=== PATIENT | female | born 2000 | race African-American/Black ===

== ENCOUNTER 2023-04-01 16:37 | Emergency (ER) | payer MEDICAID, SELFPAY ==
[2023-04-01] MEDS ORDERED: Ondansetron PF 4 MG/2 ML Vial ONE (16:57)
[2023-04-01 17:12] LABS: Hematocrit 49.3 % (36.0-47.0); Hemoglobin 15.2 g/dL (12.0-16.0); Mean Corpuscular HGB CONC 30.8 g/dL (32.0-36.0); Mean Corpuscular Hemoglobin 27.1 pg (25.0-35.0); White Blood Cell (WBC) Count 12.8 10x3/uL (4.8-10.8)
[2023-04-01 17:13] LABS: #Monocytes 0.9 thou/uL (0.11-0.59); #Neutrophils 9.8 thou/uL (1.40-6.50); %Basophils 0.7 % (0.0-1.0); %Eosinophils 0.4 % (0.0-10.0); %Lymphocytes 15.3 % (28.0-48.0); %Monocytes 7.3 % (0.0-4.0); %Neutrophils 76.3 % (31.0-61.0); Manual Diff?? NO; Mean Platelet Volume 5.7 fL (7.4-10.4); Platelet Count 329 10x3/uL (130-400); RBC Distribution Width 11.7 % (11.5-14.5)
[2023-04-01 17:14] LABS: #Basophils 0.1 thou/uL (0.0-0.2); MDiff Complete? YES
[2023-04-01 17:20] LABS: Anion Gap 18 mmol/L (10-20); BUN (Urea Nitrogen) 18 mg/dL (7.0-18.7); Calc. Creatinine Clearance 0 mL/min (70-130); Carbon Dioxide 20 mmol/L (22-29); Chloride 98 mmol/L (98-107); Estimated GFR 101; Glucose 81 mg/dL (70-105); Potassium 3.3 mmol/L (3.5-5.1); Sodium 133 mmol/L (136-145)
[2023-04-01 17:21] LABS: ALT (SGPT) 38 U/L (8-55); AST (SGOT) 26 U/L (5-34); Albumin 4.5 g/dL (3.5-5.0); Alkaline Phosphatase 92 U/L (40-100); Bilirubin, Total 2.1 mg/dL (0.2-1.2); Calcium 9.7 mg/dL (7.6-10.4); Magnesium 2.1 mg/dL (1.7-2.2); Protein, Total 8.5 g/dL (6.0-8.3)
[2023-04-01 17:59] LABS: Bilirubin Small (Negative); Blood, Urine Moderate (Negative); Clarity Cloudy (Clear); Glucose, Urine (Dipstick) Negative (Negative); Ketone, Urine 80 mg/dL (Negative); Leukocyte Small (Negative); Nitrite Positive (Negative); Protein, Urine (Dipstick) 100 mg/dL (Neg-Trace); Specific Gravity, Urine 1.025 (1.005-1.030); Urobilinogen 0.2 mg/dL (Less than 2)
[2023-04-01 18:06] LABS: CAUTI Indications for Culture Pregnancy; WBC/HPF 21-50 HPF (0-3)
[2023-04-01 18:07] LABS: Bacteria/HPF 3+ HPF (None Seen)
[2023-04-01 18:08] LABS: Urine Culture Reflex Yes Yes
[2023-04-01] MEDS ORDERED: Amoxicillin/Potassium Clav 875 MG TAB ONE (18:12)
== END 2023-04-01 18:44 | disposition home or self-care (01) ==
LOC: BURERS 16:37
DX: O23.41 Unspecified infection of urinary tract in pregnancy, first trimester (principal); N39.0 Urinary tract infection, site not specified; O21.9 Vomiting of pregnancy, unspecified; Z3A.01 Less than 8 weeks gestation of pregnancy
CPT/HCPCS: 80053; 81001; 83735; 84702; 85025; 87086; 96374; J2405